=== PATIENT | female | born 1990 | race Caucasian/White ===

== ENCOUNTER 2021-06-05 08:24 | Emergency (ER) | payer BC, SELFPAY ==
[2021-06-05 08:37] VITALS: BP 101/45; PULSE 87; RESP 16; TEMP 37.1; O2SAT 100
--- NOTE | 2021-06-05 08:41 | ED.URI ---
HPI - URI/Sore Throat General Chief Complaint: Upper Respiratory Infection Stated Complaint: Sinus Infection Time Seen by Provider: 06/05/21 08:41 Source: patient, RN notes reviewed and old records reviewed Mode of arrival: ambulatory Limitations: no limitations History of Present Illness HPI Narrative: 31-year-old female presents to the [facility] with complaints of a sinus infection for the last 3 weeks. 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 States that she is not feeling any better. Has tried ibuprofen for her pain. No other treatment for sinuses MD elicited complaint: rhinorrhea, nasal congestion and sinus pain Related Data Allergies Allergy/AdvReac Type Severity Reaction Status Date / Time No Known Allergies Allergy Verified 06/05/21 08:45 Review of Systems Review of Systems: All systems reviewed & are unremarkable except as noted in HPI and below Constitutional: Constitutional: Reports no additional constitutional complaints, Denies chills and Denies fever(s) Eyes: Eyes: Reports no additional eye complaints, Denies change in vision and Denies photophobia ENT: Reports as per HPI and Reports nasal congestion Comments: Bilateral ear pain Cardiovascular: Cardiovascular: Reports no additional cardiovascular complaints, Denies chest pain, Denies rapid heart rate and Denies radiating jaw, neck or arm pain Respiratory: Respiratory: Reports no additional respiratory complaints, Denies cough and Denies dyspnea Gastrointestinal: Gastrointestinal: Reports no additional gastrointestinal complaints, Denies abdominal pain, Denies nausea and Denies vomiting Musculoskeletal: Musculoskeletal: Reports no additional musculoskeletal complaints Integumentary/Breasts: Skin/Breast: Reports system reviewed and no additional complaints, except as docu Neurologic: Reports system reviewed and no additional complaints, except as documented Psychiatric: Psychiatric: Reports no additional psychiatric complaints Allergic/Immunologic: Allergic/Immunologic: Reports no additional allergic/immunologic complaints PMFSH Past Medical History Medical History No significant medical problems Surgical History Surgical History (Updated 06/05/21 @ 08:48 by Feli Talley) No significant past surgical history Comments At the time of my signature, I reviewed and agree with the nursing past medical, surgical, social, and family history. There is no relevant family history pertinent to the patient complaint. Exam Const: General: healthy appearing, no acute distress and alert Nutritional Appearance: well nourished Orientation/consciousness: patient oriented x3 Limitations: no limitations HENMT: Head: normal to inspection Ears: hearing grossly normal bilaterally, external ears normal, EAC's normal and TM abnormal dull bilateral and with fluid behind the TM bilateral; not erythematous and not perforated General nose exam: Normal external nose present, Normal nasal mucous membranes and turbinates present and Nasal discharge present clear Face and sinus: normal facial exam, no ecchymosis, no erythema and sinus tenderness frontal and maxillary Mouth: Yes Normal oral and palatal mucosa present, Yes moist mucous membranes and No muffled voice Throat: posterior oropharynx normal, tonsils normal and uvula midline Eyes: Conjunctivae: conjunctivae normal Pupils: Equal, round and reactive pupils present Neck: Neck: normal visual inspection, no lymphadenopathy and no meningeal signs Chest: Chest palpation & inspection: normal inspection of the chest Resp: Effort & Inspection: normal respiratory effort and no use of accessory muscles Auscultation: clear to auscultation bilaterally, no crackles, no rales, no rhonchi and no wheezes Cardio: Rate: regular rate Rhythm: regular rhythm Back/Spine/Pelvis: Back: no CVA tenderness Skin: General skin exam: normal color
== END 2021-06-05 08:57 | disposition home or self-care (01) ==
PROVIDERS: Emergency Provider Nurse Practitioner
DX: J01.40 Acute pansinusitis, unspecified (principal); J06.9 Acute upper respiratory infection, unspecified; H65.03 Acute serous otitis media, bilateral
CPT/HCPCS: 99203; G0463

== ENCOUNTER 2022-06-04 08:17 | Emergency (ER) | payer BC, SELFPAY ==
[2022-06-04 08:27] VITALS: BP 114/64; PULSE 79; RESP 16; TEMP 37.1; O2SAT 99
--- NOTE | 2022-06-04 08:37 | ED.EAR ---
HPI - Ear Problem General Chief complaint: Ear Stated complaint: Ear/Nose/ Throat Time Seen by Provider: 06/04/22 08:37 Source: patient Mode of arrival: ambulatory Limitations: no limitations History of Present Illness HPI Narrative: 32-year-old female presents with complaint of sore throat, throat swelling with radiation of pain to bilateral ears. Denies having any other symptoms. States that sore throat started 2 days ago. Is concerned she has strep throat. All systems reviewed and negative except as noted above. Related Data Allergies Allergy/AdvReac Type Severity Reaction Status Date / Time No Known Allergies Allergy Verified 06/04/22 08:20 Review of Systems Review of Systems: CONSTITUTIONAL: Denies fever, chills, or sweats. EYES: Denies visual changes, redness, or discharge. ENT: Denies rhinorrhea, congestion. Reports sore throat. CARDIOVASCULAR: Denies chest pain, palpitations, or edema. RESPIRATORY: Denies cough or dyspnea. GASTROINTESTINAL: Denies abdominal pain, nausea, vomiting, or diarrhea. GENITOURINARY: Denies dysuria or hematuria. SKIN: Denies rash or itching. MUSCULOSKELETAL: Denies back pain, joint pain, or myalgia. NEUROLOGIC: Denies headache, numbness, or weakness. PSYCHIATRIC: Denies anxiety or depression. All other systems reviewed are negative, except as documented in HPI. [facility] Past Medical History Medical History No significant medical problems Surgical History Surgical History (Updated 06/05/21 @ 08:48 by Feli Talley, [employer]ENTATIVE) No significant past surgical history Comments At time of signature, agree with nursing past medical, surgical, social and family history. There is no relevant family history pertinent to the presenting complaint. Exam Narrative: GENERAL: This is a well-nourished, well-developed patient, in no apparent distress. HEAD: normocephalic, atraumatic. EYES: PERRL. Sclera clear/white. Vision is grossly intact. EARS: External ears normal, auditory canals clear and without drainage, TMs normal without perforation. Hearing grossly intact. NOSE: External nose normal with no obvious nasal discharge, nares without redness, no rhinorrhea. THROAT: Mucous membranes moist. Erythema and swelling. No exudates or tonsillar swelling. NECK: Neck supple, non-tender without lymphadenopathy, masses or thyromegaly. CARDIOVASCULAR: Regular rate and rhythm without murmurs, gallops, or rubs. RESPIRATORY: Clear to auscultation. Breath sounds equal bilaterally. No wheezes, rales, or rhonchi. SKIN: warm, Dry, intact with no suspicious lesions or rash, good texture and turgor. NEURO: awake, alert, and oriented to person, place and time. There were no obvious focal neurologic abnormalities. EXTREMITIES: No joint tenderness, effusion, or edema noted. Course Course Level of Care: Express Care Visit Vital Signs Vital signs: Vital Signs Temperature 37.1 C 06/04/22 08:27 Pulse Rate 79 06/04/22 08:27 Respiratory Rate 16 06/04/22 08:27 Blood Pressure 114/64 06/04/22 08:27 Pulse Oximetry 99 06/04/22 08:27 Oxygen Delivery Room Air 06/04/22 08:27 Temperature 37.1 C 06/04/22 08:27 Pulse Rate 79 06/04/22 08:27 Respiratory Rate 16 06/04/22 08:27 Blood Pressure 114/64 06/04/22 08:27 Pulse Oximetry 99 06/04/22 08:27 Oxygen Delivery Room Air 06/04/22 08:27 Reviewed Medical Decision Making MDM Narrative Medical decision making narrative: Patient is aware of diagnosis, understands and agrees to treatment plan. Anticipatory guidance given. Patient agrees to follow-up as directed and is aware of reasons to seek care at the emergency department. Portions of this record may have been created with voice recognition software Vital Signs Vital Signs: Vital Signs Temperature 37.1 C 06/04/22 08:27 Pulse Rate 79 06/04/22 08:27 Respiratory Rate 16 06/04/22 08:27 Blood Pressure 114/64 1
== END 2022-06-04 09:06 | disposition home or self-care (01) ==
PROVIDERS: Emergency Provider Nurse Practitioner Family
DX: J02.9 Acute pharyngitis, unspecified (principal)
CPT/HCPCS: 87880; 99213; G0463